=== PATIENT | male | born 1995 | race Caucasian/White ===

== ENCOUNTER 2018-02-11 16:16 | Inpatient (IN) | payer BC ==
[~2018-02-11] VITALS: Ht 187.9 cm; Wt 85.8 kg
--- NOTE | ~2018-02-11 | EKG ---
[place], [place] ELECTROCARDIOGRAM REPORT NAME: CHARLIE REYES UNIT #: [id number] ROOM: 404 DOCTOR: EDUARDO DRAFT REPORT BIRTHDATE: [birth year] [facility] Test Date: 2018-02-11 Test Time: 18:02:07 Pat Name: CHARLIE REYES Department: Room: [facility] 2 Gender: M Ux Ui Designer: DIANA : 1995 Requested By: JUAN CARLOS PASCUAL Order Number: [id number] Reading MD: Seymour Knowles MD Measurements Intervals [place] Rate: 51 P: NC: 123 QRS: 22 QRSD: 79 T: 8 QT: 463 QTc: 427 Interpretive Statements NSR Short NC interval Borderline ST elevation, lateral leads Electronically Signed On 02-12-2018 20:42:24 PDT by Seymour Knowles MD CM:EKGRPT:ELECTROCARDIOGRAM REPORT 01 41 JUAN CARLOS PASCUAL EPIPHANY DRAFT REPORT JUAN CARLOS PASCUAL
[2018-02-11 17:26] LABS: BASO % 0.3 % (0.0-1.0); EOS % 0.4 % (1.0-4.0); HEMATOCRIT 45.2 % (42.0-52.0); HEMOGLOBIN 15.6 g/dl (14.0-18.0); LYMPH % 15.2 % (27.0-41.0); MEAN CELL VOLUME 87.4 fl (80.0-94.0); MEAN CORPUSCULAR HGB 30.2 pg (27.0-31.0); MEAN CORPUSCULAR HGB CONC 34.5 g/dl (33.0-37.0); MEAN PLATELET VOLUME 9.2 fl (9.6-12.3); MONO # 0.4 10*3/uL (0.1-1.0); MONO % 5.5 % (3.0-9.0); NEUT # 5.3 10*3/uL (2.3-7.9); NEUT % 78.3 % (47.0-73.0); PLATELET COUNT AUTOMATED 158 10*3/uL (130-400); RED BLOOD COUNT 5.17 10*6/uL (4.50-5.90); RED CELL DISTRI WIDTH 12.4 % (0-14.5); WHITE BLOOD COUNT 6.7 10*3/uL (4.8-10.8)
[2018-02-11 17:30] VITALS: BP 96/55
[2018-02-11 17:42] LABS: ALBUMIN 3.7 gm/dl (3.1-4.5); ALKALINE PHOSPHATASE 64 U/L (45-117); BUN 15 mg/dl (7-24); CHLORIDE 107 mmol/L (98-107); CREATININE 1.09 mg/dL (0.70-1.30); ETHYL ALCOHOL < 3.0 mg/dl (<3); POTASSIUM 3.9 mmol/L (3.5-5.1); SGOT/AST 24 IU/L (3-35); SGPT/ALT 56 U/L (12-78); SODIUM 140 mmol/L (136-145); TOTAL PROTEIN 7.3 gm/dL (6.4-8.2)
[2018-02-11 17:47] LABS: BILIRUBIN NEGATIVE (NEGATIVE); BLOOD NEGATIVE (NEGATIVE); CLARITY CLEAR (CLEAR); COLOR YELLOW (YELLOW); GLUCOSE 1+ (NEGATIVE); KETONE 1+ (NEGATIVE); LEUKO ESTERASE NEGATIVE (NEGATIVE); NITRITE NEGATIVE (NEGATIVE); SPECIFIC GRAVITY 1.015 (1.005-1.030); UROBILINOGEN 0.2 E.U./dl (0.2-1.0)
[2018-02-11 17:55] LABS: URINE AMPHETAMINES < 1000 (1000ng/ml); URINE BARBITURATES < 200 (200ng/ml); URINE BENZODIAZEPINES < 200 (200ng/ml); URINE CANNABINOIDS (THC) < 50 (50ng/ml); URINE COCAINE < 300 (300ng/ml); URINE METHADONE < 300 (300ng/ml); URINE OPIATES > 300 (300ng/ml)
[2018-02-11 17:57] LABS: BACTERIA TRACE
[2018-02-11 17:58] LABS: URINE PHENCYCLIDINE < 25 (25ng/ml)
[2018-02-11 20:00] VITALS: BP 115/64
[2018-02-12] VITALS: BP 108/72
[2018-02-12 08:00] VITALS: BP 118/70
[2018-02-12 12:00] VITALS: BP 120/69
[2018-02-12 16:00] VITALS: BP 113/59
== END 2018-02-12 19:16 | disposition left against medical advice (07) | DRG 894 ==
LOC: LAB 16:16 → 4E 16:17
PROVIDERS: Registered Nurse
DX: F11.23 Opioid dependence with withdrawal (principal); B19.20 Unspecified viral hepatitis C without hepatic coma; F13.10 Sedative, hypnotic or anxiolytic abuse, uncomplicated; Z53.21 Procedure and treatment not carried out due to patient leaving prior to being seen by health care provider; Z80.0 Family history of malignant neoplasm of digestive organs; Z87.81 Personal history of (healed) traumatic fracture; Z72.0 Tobacco use; Z71.6 Tobacco abuse counseling